=== PATIENT | male | born 1970 | race Hispanic/Latino ===

== ENCOUNTER 2024-08-18 21:07 | Emergency (ER) | payer OTHER ==
[~2024-08-18] VITALS: Ht 175.3 cm; Wt 80.0 kg
[~2024-08-18 21:07] MED LIST: BENTYL20 MG PO; MIRALAX17 GM PO; ZOFRAN4 MG PO
[2024-08-18] MEDS ORDERED: ondansetron HCL 4 MG/2 ML VIAL IV ONE (22:15)
[2024-08-18 22:29] LABS: BASOPHILS 0.6 % (0-2); EOSINOPHILS 0.8 % (0-6); HEMATOCRIT 44.2 % (35.0-50.0); HEMOGLOBIN 15.6 g/dL (12.0-18.0); LYMPHOCYTES 27.1 % (24-44); MCH 30.6 (27-36); MCHC 35.2 g/dl (30-36); MCV 86.7 fl (81-99); MONOCYTES 6.9 % (0-12); NEUTROPHILS 64.6 % (39-80); PLATELET COUNT 309 K/uL (140-440); RDW 13.9 (10.5-15.0)
[2024-08-18] MEDS ORDERED: SODIUM CHLORIDE 0.9% 1,000 ML IV PRN (22:30)
[2024-08-18 22:47] LABS: ALBUMIN 4.3 g/dL (3.4-5.0); ALBUMIN/GLOBULIN RATIO 1.34 (1.1-2.4); ANION GAP 13.6 (7-21); BILIRUBIN, TOTAL 1.1 mg/dL (0.2-1.0); CALCIUM 9.2 mg/dL (8.5-10.1); CREATININE, SERUM 0.7 mg/dL (0.70-1.30); POTASSIUM 3.6 mmol/L (3.5-5.1); PROTEIN, TOTAL 7.5 g/dL (6.4-8.2)
[2024-08-18 23:17] LABS: CORONAVIRUS COVID-19 AG NEGATIVE (NEGATIVE); INFLUENZA A AG NEGATIVE (NEGATIVE); INFLUENZA B AG NEGATIVE (NEGATIVE)
[2024-08-18 23:56] LABS: BILIRUBIN, URINE NEGATIVE (negative); BLOOD/HGB, URINE NEGATIVE (Negative); KETONE, URINE NEGATIVE (Negative); LEUK ESTERASE, URINE NEGATIVE (negative); NITRITE, URINE NEGATIVE (negative)
[2024-08-19] MEDS ORDERED: ONDANSETRON ODT8 MG PO (01:52)
[2024-08-19] MEDS ORDERED: PROTONIX40 MG PO (01:52)
[2024-08-19] MEDS ORDERED: PANTOPRAZOLE SODIUM 40 MG TABEC PO ONE (02:00)
[2024-08-19] MEDS ORDERED: ONDANSETRON 4 MG HOME.PACK SL ONE (02:00)
[2024-08-19 02:12] VITALS: BP 151/94
--- NOTE | 2024-08-19 12:46 | EKG ---
[facility] [address] [place], [place] [address] Signed Normal sinus rhythm Normal ECG No previous ECGs available Confirmed by Sally Ford MD ([id number]) on 08/19/2024 12:46:43 PM Electronically Signed By: SALLY FORD MD 08/19/24 1246 PATIENT NAME: ZEB DEVINE Electrocardiogram DATE OF : 74 PHYSICIAN: SALLY FORD MD REPORT #: [id number] REPORT IS CONFIDENTIAL AND NOT TO BE RELEASED WITHOUT AUTHORIZATION
== END 2024-08-19 02:12 | disposition home or self-care (01) ==
LOC: ED 21:07
PROVIDERS: Emergency Medicine
DX: A08.4 Viral intestinal infection, unspecified (principal)
CPT/HCPCS: 36415; 74177; 80053; 81003; 83690; 83735; 84484; 85025; 93005; 93010; 96361; 99285-25; A9270; J2405; J7030; Q9967